=== PATIENT | male | born 2000 | race Hispanic/Latino ===

== ENCOUNTER 2018-01-14 14:20 | Emergency (ER) | payer SELFPAY ==
[~2018-01-14] VITALS: Ht 182.9 cm; Wt 72.8 kg
[~2018-01-14 14:20] MED LIST: AUGMENTIN400 MG/5 M OR; GENTAMICIN15 ML/BTL OP
[2018-01-14] MEDS ORDERED: GENTAK0.32 OD (15:02)
[2018-01-14 15:30] VITALS: BP 120/79
== END 2018-01-14 15:30 | disposition home or self-care (01) | DRG 125 ==
LOC: ED 14:20
DX: S05.11XA Contusion of eyeball and orbital tissues, right eye, initial encounter (principal); W50.0XXA Accidental hit or strike by another person, initial encounter; Y93.67 Activity, basketball; Y92.219 Unspecified school as the place of occurrence of the external cause